=== PATIENT | female | born 1935 | race Caucasian/White ===

== ENCOUNTER 2017-02-28 06:02 | Day surgery (SDC) | payer OTHER ==
[~2017-02-28] VITALS: Ht 167.6 cm; Wt 52.0 kg
[~2017-02-28 06:02] MED LIST: ASPIR 8181 M1 PO; CALCIUM500 M4 PO; CENTRUM SILVER1 EAC4 PO; GLUCOSAMINE1000 MG PO; NORVASC5 MG PO; PRADAXA150 MG PO; TOPROL XL100 MG PO; TYLENOL ARTHRI650 MG PO; ZESTRIL40 MG PO
[2017-02-28 08:24] VITALS: BP 174/79
[2017-02-28 13:34] VITALS: BP 162/76
[2017-02-28 16:24] VITALS: BP 161/76
[2017-02-28 19:35] VITALS: BP 147/59
[2017-02-28 23:08] VITALS: BP 132/79
[2017-03-01 04:12] VITALS: BP 165/75
[2017-03-01 06:12] LABS: HEMATOCRIT 39.4 % (36.0-46.0); MCH 30.5 PG (29.0-34.0); MCHC 32.5 G/DL (30.0-36.0); MCV 93.8 FL (83-99); MEAN PLAT.VOLUME 10.6 uM^3 (9.5-12.4); PLATELET COUNT 146 K/uL (156-360); RBC DIS.WIDTH-CV 13.6 % (11.8-14.6); RBC DIS.WIDTH-SD 46.6 % (39-53); WHITE BLOOD COUNT 9.4 K/uL (4.1-10.2)
[2017-03-01 07:09] VITALS: BP 149/68
[2017-03-01] MEDS ORDERED: ENDOCET 5-3251 EACH PO (09:05)
== END 2017-03-01 09:38 | disposition home or self-care (01) ==
LOC: SDC 06:02 → NUC 07:00 → 2SOUTH 12:13 → 2EAST 12:13 → ENRESERV 12:15 → 2EAST 13:35
PROVIDERS: Surgery
DX: C50.112 Malignant neoplasm of central portion of left female breast (principal); C77.3 Secondary and unspecified malignant neoplasm of axilla and upper limb lymph nodes; Z17.0 Estrogen receptor positive status [ER+]; I48.91 Unspecified atrial fibrillation; I10 Essential (primary) hypertension; Z79.82 Long term (current) use of aspirin; Z79.01 Long term (current) use of anticoagulants
CPT/HCPCS: 78195; 78999; 85027; 88305; 88307; A9541; G0378; J0131; J0690; J1100; J2250; J2405; J3010; J3480; S0020